=== PATIENT | male | born 1945 | race Caucasian/White ===

== ENCOUNTER 2018-02-16 17:10 | Inpatient (IN) | payer OTHER, MEDICARE ==
[~2018-02-16] VITALS: Ht 175.3 cm; Wt 75.7 kg
[~2018-02-16 17:10] MED LIST: ALBU2.5V11 MC; IPRA0.2S18 IH
[2018-02-16] MEDS ORDERED: predniSONE 20 MG TABLET ONE (17:23)
[2018-02-16] MEDS ORDERED: predniSONE 20 MG TABLET PO ONE (17:30)
[2018-02-16] MEDS ORDERED: ALBUTEROL FS 2.5 MG/3 ML VIAL.NEB NEB ONE (17:30)
[2018-02-16] MEDS ORDERED: IPRATROPIUM NEB FS 0.5 MG/2.5 ML AMPUL.NEB NEB ONE (17:30)
[2018-02-16] MEDS ORDERED: ALBUTEROL FS 2.5 MG/3 ML VIAL.NEB CONTNEB ONE (17:30)
[2018-02-16] MEDS ORDERED: IPRATROPIUM NEB FS 0.5 MG/2.5 ML AMPUL.NEB ONE (17:35)
[2018-02-16] MEDS ORDERED: ALBUTEROL FS 2.5 MG/3 ML VIAL.NEB ONE (17:35)
[2018-02-16] MEDS ORDERED: LEVOFLOXACIN 750 MG /D5W 150ML 150 ML IV ONE ×2 (19:40→20:00)
[2018-02-16] MEDS ORDERED: CEFTRIAXONE 1 G VIAL ONE (19:40)
[2018-02-16] MEDS ORDERED: IV NS 0.9% 1,000 ML BAG IV ONE (20:00)
[2018-02-16] MEDS ORDERED: CEFTRIAXONE 1GM BAG (ER ONLY) 50 ML IV ONE (20:00)
[2018-02-16 20:01] LABS: EOSINOPHILS % (AUTO) 0.6 % (0.0-6.0)
[2018-02-16 20:11] LABS: BASOPHILS % (AUTO) 0.5 % (0.0-2.0); HEMATOCRIT 46 % (39-51); HEMOGLOBIN 14.5 g/dL (13.5-17.5); LYMPHOCYTES # (AUTO) 0.9 /CMM (0.8-4.8); LYMPHOCYTES % (AUTO) 13.3 % (20.0-44.0); MEAN CORPUSCULAR HEMOGLOBIN 30 PG (26.0-33.0); MEAN CORPUSCULAR HGB CONC 32 g/dl (31.0-36.0); MEAN CORPUSCULAR VOLUME 94 fL (80-96); MONOCYTES # (AUTO) 0.4 /CMM (0.1-1.30); MONOCYTES % (AUTO) 5.3 % (2.0-12.0); NEUTROPHILS # (AUTO) 5.6 /CMM (1.8-8.9); NEUTROPHILS % (AUTO) 80.3 % (43.0-81.0); PLATELET COUNT (AUTO) 364 /CMM (150-450); RED BLOOD CELL COUNT(AUTO) 4.84 MIL/uL (4.5-6.0); WHITE BLOOD COUNT (AUTO) 6.9 K/uL (4.3-11.0)
[2018-02-16 20:22] LABS: CALCIUM, SERUM 8.8 mg/dL (8.5-10.1); CARBON DIOXIDE 32 mmol/L (21-32); CHLORIDE 104 mmol/L (98-107); CREATININE 0.9 mg/dL (0.6-1.3); GLUCOSE 158 mg/dL (74-106); POTASSIUM 3.2 mmol/L (3.5-5.1); SODIUM SERUM 139 mmol/L (136-145); UREA NITROGEN, BLOOD 13 mg/dL (7-18)
[2018-02-16 21:00] VITALS: BP 124/58
[2018-02-16] MEDS ORDERED: ZOLPIDEM TARTRATE 5 MG TABLET PO PRN (23:00)
[2018-02-16] MEDS ORDERED: Z GUARD REMEDY 2 OZ OINT TP PRN (23:00)
[2018-02-16] MEDS ORDERED: ACETAMINOPHEN 325 MG TABLET PO PRN (23:00)
[2018-02-16] MEDS ORDERED: AZITHROMYCIN 250 MG TABLET PO ONE (23:00)
[2018-02-16] MEDS ORDERED: ONDANSETRON HCL/PF 4 MG/2 ML VIAL IVP PRN (23:00)
[2018-02-16] MEDS ORDERED: POTASSIUM CHLORIDE 20 MEQ TAB.PRT.SR PO ONE (23:00)
[2018-02-17] MEDS: ALBUTEROL FS 2.5 MG/0.5 ML VIAL.NEB NEB SCH ×7 (00:06→23:04)
[2018-02-17] MEDS: IPRATROPIUM NEB FS 0.5 MG/2.5 ML AMPUL.NEB NEB SCH ×7 (00:07→23:04)
[2018-02-17] MEDS: NICOTINE PATCH (21MG) 21 MG PATCH.TD24 TD SCH (04:07)
[2018-02-17] MEDS: IV NS 0.9% 1,000 ML IV PRN (05:37)
[2018-02-17 06:34] LABS: BASOPHILS % (AUTO) 0.1 % (0.0-2.0); HEMATOCRIT 44 % (39-51); HEMOGLOBIN 14.2 g/dL (13.5-17.5); LYMPHOCYTES # (AUTO) 0.6 /CMM (0.8-4.8); LYMPHOCYTES % (AUTO) 14.6 % (20.0-44.0); MEAN CORPUSCULAR HEMOGLOBIN 32 PG (26.0-33.0); MEAN CORPUSCULAR HGB CONC 32 g/dl (31.0-36.0); MEAN CORPUSCULAR VOLUME 97 fL (80-96); MONOCYTES # (AUTO) 0.3 /CMM (0.1-1.30); MONOCYTES % (AUTO) 7.3 % (2.0-12.0); NEUTROPHILS # (AUTO) 3.2 /CMM (1.8-8.9); PLATELET COUNT (AUTO) 356 /CMM (150-450); RDW COEFFICIENT OF VARIATION 14.8 (11.5-15.0); RED BLOOD CELL COUNT(AUTO) 4.51 MIL/uL (4.5-6.0)
[2018-02-17 07:02] LABS: ALANINE AMINOTRANSFERASE 20 U/L (12-78); ALBUMIN 3.1 g/dL (3.4-5.0); ALKALINE PHOSPHATASE 69 U/L (46-116); ASPARTATE AMINOTRANSFERASE 16 U/L (15-37); BILIRUBIN,TOTAL 0.1 mg/dL (0.2-1.0); CALCIUM, SERUM 8.9 mg/dL (8.5-10.1); CARBON DIOXIDE 28 mmol/L (21-32); CHLORIDE 103 mmol/L (98-107); CREATININE 0.9 mg/dL (0.6-1.3); GLUCOSE 164 mg/dL (74-106); PHOSPHORUS 3.2 mg/dL (2.5-4.9); POTASSIUM 4.3 mmol/L (3.5-5.1); SODIUM SERUM 140 mmol/L (136-145); TOTAL PROTEIN, SERUM 7.3 g/dL (6.4-8.2); UREA NITROGEN, BLOOD 12 mg/dL (7-18)
[2018-02-17 07:13] LABS: CHOLESTEROL 107 mg/dL (<200); HDL CHOLESTEROL 57 mg/dL (40-60); LDL 47 mg/dL (0-99); THYROID STIMULATING HORMONE 1.245 uIU/mL (0.358-3.74); TRIGLYCERIDES 23 mg/dL (30-150)
[2018-02-17 08:00] VITALS: BP 140/92
[2018-02-17] MEDS: PANTOPRAZOLE 40 MG TABLET.DR PO SCH (08:14)
[2018-02-17] MEDS: methylPREDNISolone SOD SUCC 125 MG/2ML VIAL IV SCH ×3 (08:17→16:18)
[2018-02-17] MEDS: ENOXAPARIN SODIUM 40 MG/0.4 ML DISP.SYRIN SQ SCH (08:58)
[2018-02-17] MEDS ORDERED: NICOTINE PATCH (21MG) 21 MG PATCH.TD24 TD SCH (09:00)
[2018-02-17 09:07] LABS: ABG BASE EXCESS 0.3 mmol/L; ABG PCO2 38.9 mmHg (35.0-45.0); ABG PH 7.419 (7.350-7.450); ABG PO2 57.3 mmHg (75.0-100.0); AaDO2 125.3 mmHg; COHb 0.2 % (0.5-1.5); MetHb 0.4 % (0.0-1.5); O2Hb 88.5 % (94.0-97.0); SITE, ABG Right Radial; VENT MODE, BG 3L NC
[2018-02-17 16:00] VITALS: BP 146/83
[2018-02-17] MEDS: IBUPROFEN 400 MG TABLET PO PRN ×2 (16:26→20:16)
[2018-02-17] MEDS: AZITHROMYCIN 250 MG TABLET PO SCH (20:18)
[2018-02-17 21:00] VITALS: BP 132/73
[2018-02-17 22:00] VITALS: BP 132/73
[2018-02-17] MEDS ORDERED: MAGNESIUM HYDROXIDE 30 ML UDC PO PRN (22:00)
[2018-02-17] MEDS: SIMETHICONE 80 MG TAB.CHEW PO PRN (22:19)
[2018-02-17] MEDS: MONTELUKAST SODIUM (10MG) 10 MG TABLET PO SCH (22:20)
[2018-02-18] MEDS: IPRATROPIUM NEB FS 0.5 MG/2.5 ML AMPUL.NEB NEB SCH ×6 (03:27→23:20)
[2018-02-18] MEDS: ALBUTEROL FS 2.5 MG/0.5 ML VIAL.NEB NEB SCH ×6 (03:27→23:20)
[2018-02-18] MEDS: NICOTINE PATCH (21MG) 21 MG PATCH.TD24 TD SCH (05:15)
[2018-02-18] MEDS: IV NS 0.9% 1,000 ML IV PRN (05:26)
[2018-02-18 08:00] VITALS: BP 122/60
[2018-02-18] MEDS: PANTOPRAZOLE 40 MG TABLET.DR PO SCH (08:37)
[2018-02-18] MEDS: methylPREDNISolone SOD SUCC 40 MG/ML VIAL IV SCH ×2 (10:07→17:21)
[2018-02-18] MEDS: ENOXAPARIN SODIUM 40 MG/0.4 ML DISP.SYRIN SQ SCH (10:11)
[2018-02-18] MEDS: IBUPROFEN 400 MG TABLET PO PRN (15:31)
[2018-02-18 16:00] VITALS: BP_SYST 132; BP_SYST 139; BP_DIAS 84; BP_DIAS 85
[2018-02-18] MEDS: SIMETHICONE 80 MG TAB.CHEW PO PRN (17:20)
[2018-02-18] MEDS: DIVALPROEX SODIUM 250 MG TABLET.DR PO SCH (17:21)
[2018-02-18] MEDS: QUETIAPINE FUMARATE 25 MG TABLET PO SCH (17:21)
[2018-02-18 20:00] VITALS: BP 126/80
[2018-02-18] MEDS: AZITHROMYCIN 250 MG TABLET PO SCH (20:45)
[2018-02-18] MEDS: MONTELUKAST SODIUM (10MG) 10 MG TABLET PO SCH (21:27)
[2018-02-19] MEDS: ALBUTEROL FS 2.5 MG/0.5 ML VIAL.NEB NEB SCH ×3 (03:14→11:35)
[2018-02-19] MEDS: IPRATROPIUM NEB FS 0.5 MG/2.5 ML AMPUL.NEB NEB SCH ×3 (03:14→11:35)
[2018-02-19] MEDS: NICOTINE PATCH (21MG) 21 MG PATCH.TD24 TD SCH (04:21)
[2018-02-19] MEDS: IV NS 0.9% 1,000 ML IV PRN (06:08)
[2018-02-19 08:00] VITALS: BP 123/76
[2018-02-19] MEDS: QUETIAPINE FUMARATE 25 MG TABLET PO SCH (08:46)
[2018-02-19] MEDS: PANTOPRAZOLE 40 MG TABLET.DR PO SCH (08:46)
[2018-02-19] MEDS: methylPREDNISolone SOD SUCC 40 MG/ML VIAL IV SCH (08:46)
[2018-02-19] MEDS: DIVALPROEX SODIUM 250 MG TABLET.DR PO SCH ×2 (08:46→13:37)
[2018-02-19 09:00] VITALS: BP 123/76
[2018-02-19] MEDS: ENOXAPARIN SODIUM 40 MG/0.4 ML DISP.SYRIN SQ SCH (09:00)
[2018-02-19] MEDS ORDERED: LORAZEPAM INJ 2 MG/ML VIAL IV ONE (13:30)
== END 2018-02-19 15:00 | disposition home or self-care (01) | DRG 140 ==
LOC: ER 17:11 → MED 20:32
PROVIDERS: ADMIT Nurse Practitioner Acute Care; ATTEND Nurse Practitioner Acute Care
DX: J44.1 Chronic obstructive pulmonary disease with (acute) exacerbation (principal); J96.01 Acute respiratory failure with hypoxia; J96.02 Acute respiratory failure with hypercapnia; E87.6 Hypokalemia; Z59.0 Homelessness; F17.210 Nicotine dependence, cigarettes, uncomplicated; F31.64 Bipolar disorder, current episode mixed, severe, with psychotic features
CPT/HCPCS: 36415; 36600; 71045-TC; 80048-TC; 80053-TC; 80061-TC; 83605-TC; 83735-TC; 84100-TC; 84443-TC; 84484-TC; 85025-TC; 87040-TC; 87081-TC; 93307-TC; 97530-TC; A4216; A4606; A6253; J0696; J1650; J1956; J2060; J2920; J2930; J7030; Z7610

== ENCOUNTER 2018-04-01 23:15 | Emergency (ER) | payer MEDICARE, OTHER ==
[~2018-04-01] VITALS: Ht 170.2 cm; Wt 72.6 kg
[2018-04-01 23:25] VITALS: BP 124/53
[2018-04-01] MEDS: ALBUTEROL FS 2.5 MG/0.5 ML VIAL.NEB NEB ONE (23:39)
[2018-04-01] MEDS ORDERED: ALBUTEROL FS 2.5 MG/0.5 ML VIAL.NEB ONE (23:42)
--- NOTE | 2018-04-02 00:05 | NUR ---
PT YELLING CURSE WORDS AT STAFF AND BEING BELIGERENT. PT YELLING AT STAFF CALLING PEOPLE "WHITE TRASH". SECURITY CALLED TO BEDSIDE.
== END 2018-04-02 00:11 | disposition home or self-care (01) ==
LOC: ER 23:17
DX: J44.9 Chronic obstructive pulmonary disease, unspecified (principal); F17.210 Nicotine dependence, cigarettes, uncomplicated; Z91.012 Allergy to eggs; Z59.0 Homelessness
CPT/HCPCS: 71045-TC; A4606; Z7610